=== PATIENT | female | born 1985 | race Caucasian/White ===

== ENCOUNTER 2018-03-18 18:54 | Inpatient (IN) | payer MEDICAID ==
[~2018-03-18] VITALS: Ht 160 cm; Wt 94.0 kg
[2018-03-18 19:32] LABS: UA SPECIFIC GRAVITY >=1.030 (1.005-1.035); microscopic required? YES; urine erythrocyte TRACE (NEGATIVE)
[2018-03-18 19:36] LABS: PLATELET COUNT 232 x10^3mcL (130-400); RED CELL DISTRIBUTION WIDTH 13.7 % (11.5-14.5)
[2018-03-18 19:39] LABS: BASOPHIL % 0 % (0-2)
[2018-03-18 19:43] LABS: CALCIUM 8.2 mg/dL (8.5-10.1); CARBON DIOXIDE 26.1 mmol/L (21-32); CHLORIDE SERUM 97 mmol/L (98-107); CREATININE SERUM 0.7 mg/dL (0.6-1.0); GFR1 > 60 mL/min; GLUCOSE SERUM 121 mg/dL (74-106); POTASSIUM SERUM 3.3 mmol/L (3.5-5.1); SODIUM SERUM 130 mmol/L (136-145)
[2018-03-18 19:57] LABS: ALKALINE PHOSPHATASE 143 U/L (46-116); BILIRUBIN TOTAL 1.6 mg/dL (0.20-1.00); TOTAL PROTEIN, SERUM 6.9 g/dL (6.4-8.2)
[2018-03-18 19:58] LABS: AMPHETAMINE QUAL UR POSITIVE (See below)
[2018-03-18 20:46] LABS: ALT/SGPT 8961 U/L (14-59); AST/SGOT 8066 U/L (15-37)
[2018-03-18 23:17] VITALS: BP 125/79
[2018-03-18 23:23] VITALS: Ht 160 cm; Wt 94.0 kg
[2018-03-18 23:56] LABS: T3 TOTAL 0.65 ng/mL
[2018-03-18 23:57] LABS: CHOLESTEROL/HDL RATIO 4.2
[2018-03-19 00:08] LABS: FREE T4 1.14 ng/dL (0.76-1.46)
[2018-03-19 00:09] LABS: FREE THYROXINE INDEX 1.4 ug/dL (1.4-4.5); T4(THYROXINE) 4.5 ug/dL (4.7-13.3)
[2018-03-19 05:49] VITALS: BP 133/92
[2018-03-19 06:53] LABS: BASOPHIL % 0.5 % (0-2); PLATELET COUNT 200 x10^3mcL (130-400); RED CELL DISTRIBUTION WIDTH 13.5 % (11.5-14.5)
[2018-03-19 07:07] LABS: ALKALINE PHOSPHATASE 121 U/L (46-116); BILIRUBIN TOTAL 1.52 mg/dL (0.20-1.00); CALCIUM 7.6 mg/dL (8.5-10.1); CARBON DIOXIDE 23.3 mmol/L (21-32); CHLORIDE SERUM 104 mmol/L (98-107); CREATININE SERUM 0.7 mg/dL (0.6-1.0); GFR1 > 60 mL/min; GLUCOSE SERUM 109 mg/dL (74-106); MAGNESIUM 1.8 mg/dL (1.8-2.4); PHOSPHOROUS 1.3 mg/dL (2.5-4.9); POTASSIUM SERUM 3.2 mmol/L (3.5-5.1); SODIUM SERUM 139 mmol/L (136-145)
[2018-03-19 07:08] LABS: ALBUMIN 2.3 g/dL (3.4-5.0)
[2018-03-19 08:42] LABS: AST/SGOT 2346 U/L (15-37)
[2018-03-19 08:44] LABS: ALT/SGPT 3675 U/L (14-59)
[2018-03-19 08:56] VITALS: BP 118/94
[2018-03-19 13:07] VITALS: BP 112/80
[2018-03-19 17:25] VITALS: BP 90/55
[2018-03-19 21:06] VITALS: BP 145/100
[2018-03-20 05:57] VITALS: BP 125/91
[2018-03-20 07:12] LABS: PLATELET COUNT 224 x10^3mcL (130-400); RED CELL DISTRIBUTION WIDTH 14.4 % (11.5-14.5)
[2018-03-20 07:29] LABS: ALKALINE PHOSPHATASE 129 U/L (46-116); AST/SGOT 540 U/L (15-37); BILIRUBIN TOTAL 0.7 mg/dL (0.20-1.00); CALCIUM 8.2 mg/dL (8.5-10.1); CARBON DIOXIDE 26.3 mmol/L (21-32); CHLORIDE SERUM 108 mmol/L (98-107); CREATININE SERUM 0.6 mg/dL (0.6-1.0); GFR1 > 60 mL/min; GLUCOSE SERUM 91 mg/dL (74-106); MAGNESIUM 1.8 mg/dL (1.8-2.4); PHOSPHOROUS 2.2 mg/dL (2.5-4.9); POTASSIUM SERUM 4.1 mmol/L (3.5-5.1); SODIUM SERUM 140 mmol/L (136-145)
[2018-03-20 07:30] LABS: ALBUMIN 2.4 g/dL (3.4-5.0); ALT/SGPT 3315 U/L (14-59); TOTAL PROTEIN, SERUM 6.1 g/dL (6.4-8.2)
[2018-03-20 08:40] VITALS: BP 122/89
== END 2018-03-20 11:08 | disposition left against medical advice (07) | DRG 812 ==
LOC: ED 18:54 → DU 22:12
PROVIDERS: Family Medicine; Specialist
DX: T39.1X1A Poisoning by 4-Aminophenol derivatives, accidental (unintentional), initial encounter (principal); N17.0 Acute kidney failure with tubular necrosis; K71.2 Toxic liver disease with acute hepatitis; E44.0 Moderate protein-calorie malnutrition; E80.6 Other disorders of bilirubin metabolism; E87.1 Hypo-osmolality and hyponatremia; F33.9 Major depressive disorder, recurrent, unspecified; F15.10 Other stimulant abuse, uncomplicated; G89.29 Other chronic pain; M54.9 Dorsalgia, unspecified; R80.9 Proteinuria, unspecified; F43.10 Post-traumatic stress disorder, unspecified; F60.3 Borderline personality disorder; F12.10 Cannabis abuse, uncomplicated; Y92.018 Other place in single-family (private) house as the place of occurrence of the external cause; Z68.36 Body mass index [BMI] 36.0-36.9, adult
CPT/HCPCS: 84439; 90658; C9113; G0480; J7030; Q0092

== ENCOUNTER 2019-03-28 01:58 | Inpatient (IN) | payer MEDICAID ==
[~2019-03-28] VITALS: Ht 160 cm; Wt 105.0 kg
[2019-03-28 02:48] LABS: BASOPHIL % 0.6 % (0-2); PLATELET COUNT 342 x10^3mcL (130-400); RED CELL DISTRIBUTION WIDTH 13.9 % (11.5-14.5)
[2019-03-28 02:55] LABS: CALCIUM 8.2 mg/dL (8.5-10.1); CARBON DIOXIDE 25.6 mmol/L (21-32); CHLORIDE SERUM 103 mmol/L (98-107); CREATININE SERUM 0.9 mg/dL (0.6-1.0); GFR1 > 60 mL/min; GLUCOSE SERUM 148 mg/dL (74-106); POTASSIUM SERUM 3.7 mmol/L (3.5-5.1); SODIUM SERUM 140 mmol/L (136-145)
[2019-03-28 02:59] LABS: ALBUMIN 3.6 g/dL (3.4-5.0); ALKALINE PHOSPHATASE 89 U/L (46-116); ALT/SGPT 14 U/L (14-59); AST/SGOT 14 U/L (15-37); BILIRUBIN TOTAL 0.19 mg/dL (0.20-1.00); TOTAL PROTEIN, SERUM 7.4 g/dL (6.4-8.2)
[2019-03-28 03:59] LABS: AMPHETAMINE QUAL UR POSITIVE (See below)
[2019-03-28 07:18] LABS: CHOLESTEROL/HDL RATIO 3.8; MAGNESIUM 2.1 mg/dL (1.8-2.4); PHOSPHOROUS 3.8 mg/dL (2.5-4.9)
[2019-03-28 07:20] LABS: T3 TOTAL 1.01 ng/mL
[2019-03-28 07:32] LABS: FREE T4 1.45 ng/dL (0.76-1.46); FREE THYROXINE INDEX 3.4 ug/dL (1.4-4.5); T4(THYROXINE) 9.7 ug/dL (4.7-13.3)
[2019-03-28 08:30] VITALS: BP 118/79
[2019-03-28 09:43] VITALS: Ht 160 cm; Wt 105.0 kg
[2019-03-28 12:05] VITALS: BP 105/75
[2019-03-28 16:00] VITALS: BP 117/78
[2019-03-28 19:33] VITALS: BP 107/65
[2019-03-28 23:17] VITALS: BP 107/67
[2019-03-29 03:11] VITALS: BP 109/75
[2019-03-29 05:36] LABS: BASOPHIL % 0.8 % (0-2); PLATELET COUNT 265 x10^3mcL (130-400); RED CELL DISTRIBUTION WIDTH 14.2 % (11.5-14.5)
[2019-03-29 05:45] LABS: CALCIUM 7.9 mg/dL (8.5-10.1); CARBON DIOXIDE 28.8 mmol/L (21-32); CHLORIDE SERUM 109 mmol/L (98-107); CREATININE SERUM 0.8 mg/dL (0.6-1.0); GFR1 > 60 mL/min; GLUCOSE SERUM 79 mg/dL (74-106); MAGNESIUM 1.9 mg/dL (1.8-2.4); PHOSPHOROUS 3.3 mg/dL (2.5-4.9); POTASSIUM SERUM 3.9 mmol/L (3.5-5.1); SODIUM SERUM 143 mmol/L (136-145)
[2019-03-29 07:30] VITALS: BP 121/84
[2019-03-29 13:55] VITALS: BP 148/105
[2019-03-29 21:06] VITALS: BP 118/79
[2019-03-30 05:46] VITALS: BP 97/69
[2019-03-30 06:36] LABS: BASOPHIL % 0.9 % (0-2); PLATELET COUNT 297 x10^3mcL (130-400); RED CELL DISTRIBUTION WIDTH 13.8 % (11.5-14.5)
[2019-03-30 07:08] VITALS: BP 117/83
[2019-03-30 07:08] LABS: CALCIUM 8.7 mg/dL (8.5-10.1); CARBON DIOXIDE 31.1 mmol/L (21-32); CHLORIDE SERUM 104 mmol/L (98-107); CREATININE SERUM 0.9 mg/dL (0.6-1.0); GFR1 > 60 mL/min; GLUCOSE SERUM 87 mg/dL (74-106); MAGNESIUM 1.7 mg/dL (1.8-2.4); PHOSPHOROUS 4.5 mg/dL (2.5-4.9); SODIUM SERUM 141 mmol/L (136-145)
[2019-03-30 12:09] VITALS: BP 116/77
[2019-03-30 16:36] VITALS: BP 106/69
[2019-03-30 20:39] VITALS: BP 128/86
[2019-03-31 05:42] VITALS: BP 109/71
[2019-03-31 06:11] LABS: BASOPHIL % 0.5 % (0-2); PLATELET COUNT 337 x10^3mcL (130-400); RED CELL DISTRIBUTION WIDTH 14.3 % (11.5-14.5)
[2019-03-31 08:16] VITALS: BP 107/58
== END 2019-03-31 15:25 | DRG 812 ==
LOC: ED 01:58 → IC 05:29 → DU 03-29 13:49 → MU 03-31 11:10
PROVIDERS: Emergency Medicine; General Practice; ADMIT Internal Medicine
DX: T42.6X1A Poisoning by other antiepileptic and sedative-hypnotic drugs, accidental (unintentional), initial encounter (principal); F33.0 Major depressive disorder, recurrent, mild; Z68.41 Body mass index [BMI] 40.0-44.9, adult; F10.129 Alcohol abuse with intoxication, unspecified; T39.311A Poisoning by propionic acid derivatives, accidental (unintentional), initial encounter; R11.2 Nausea with vomiting, unspecified; F15.10 Other stimulant abuse, uncomplicated; F41.1 Generalized anxiety disorder; F17.210 Nicotine dependence, cigarettes, uncomplicated; Y90.0 Blood alcohol level of less than 20 mg/100 ml; Y92.018 Other place in single-family (private) house as the place of occurrence of the external cause
CPT/HCPCS: 83880; 84439; C9113; G0378; G0480; J2405; J3490; J7030

== ENCOUNTER 2019-12-18 07:24 | Emergency (ER) | payer MEDICAID ==
[~2019-12-18] VITALS: Ht 172.7 cm; Wt 90.7 kg
[2019-12-18 07:29] VITALS: Ht 172.7 cm; Wt 90.7 kg
[2019-12-18 09:36] LABS: PLATELET COUNT 217 x10^3mcL (130-400); RED CELL DISTRIBUTION WIDTH 13.6 % (11.5-14.5)
[2019-12-18 09:37] LABS: BASOPHIL % 0 % (0-2)
[2019-12-18 10:33] LABS: CALCIUM 8.5 mg/dL (8.5-10.1); CARBON DIOXIDE 27.7 mmol/L (21-32); CHLORIDE SERUM 108 mmol/L (98-107); GFR1 > 60 mL/min; GLUCOSE SERUM 97 mg/dL (74-106); POTASSIUM SERUM 3.8 mmol/L (3.5-5.1); SODIUM SERUM 143 mmol/L (136-145)
[2019-12-18 10:38] LABS: ALBUMIN 3.4 g/dL (3.4-5.0); ALKALINE PHOSPHATASE 79 U/L (46-116); ALT/SGPT 19 U/L (14-59); AST/SGOT 9 U/L (15-37); BILIRUBIN TOTAL 0.33 mg/dL (0.20-1.00); CHOLESTEROL 153 mg/dL (<200); LIPASE 67 IU/L (73-393); TOTAL PROTEIN, SERUM 6.9 g/dL (6.4-8.2)
[2019-12-18 10:44] LABS: AMPHETAMINE QUAL UR POSITIVE (See below)
[2019-12-18 11:34] VITALS: BP 99/56
== END 2019-12-18 13:42 | disposition home or self-care (01) ==
LOC: ED 07:24
PROVIDERS: Specialist
DX: F15.129 Other stimulant abuse with intoxication, unspecified (principal); E86.0 Dehydration
CPT/HCPCS: 82962; G0480; J7030; Q0092